=== PATIENT | female | born 1970 | race Caucasian/White ===

== ENCOUNTER → 2023-04-26 | Outpatient (CLI) | payer OTHER, SELFPAY ==
--- NOTE | 2023-04-26 08:30 | MRI_ITS ---
STUDY: MRI LEFT HIP REASON FOR EXAM: Female, 52 years old. Left hip injury. Pain. TECHNIQUE: Standardized fat and water weighted pulse sequences were obtained in all 3 orthogonal planes. COMPARISON: None. FINDINGS: Mild loss of articular cartilage of both hips with small hip effusions (coronal series 4 images 7-14). Normal gluteus minimus, medius and iliopsoas tendons and distal insertions. Bilateral mild greater trochanteric bursitis (coronal series 4 images 14-16). Normal superior and inferior pubic rami. Normal pubic symphysis. Normal ischial tuberosity. Normal origin of the hamstring tendons. Extensive bone marrow edema in the left sacrum. Given the history, this may be posttraumatic. However, this may also represent an insufficiency fracture (coronal series 4 images 13-21, axial series 5 images 4-11). Bone marrow edema in the left superior pubic ramus extending back into the left acetabulum (coronal series 4 images 4-T10). Normal visualized soft tissue structures of the pelvis. MRI/Lower Ext Joint Only (Routine) IMPRESSION: Bone marrow edema of the left sacrum and the left superior pubic ramus extending into the left acetabulum. These findings may be secondary to acute trauma, given the history. They may also be secondary to stress-related changes. No displacement or soft tissue mass. Bilateral mild greater trochanteric bursitis. 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 Electronically Signed: Robles Jacob MD at 10:16 EDT ,
== END | disposition home or self-care (01) ==
LOC: MRI 07:39
PROVIDERS: PCP Nurse Practitioner Family; Referring Provider Nurse Practitioner Family; Visit Provider Nurse Practitioner Family
DX: S79.911D Unspecified injury of right hip, subsequent encounter (principal)
CPT/HCPCS: 73721